=== PATIENT | male | born 1990 ===

== ENCOUNTER 2017-05-23 10:13 | Emergency (ER) | payer MEDICAID ==
[~2017-05-23 10:13] MED LIST: Sodium Chloride 0.9% 1,000 ML IV ONE; Sodium Chloride 0.9% 10 ML Syringe FLUSH PRN
--- NOTE | 2017-05-23 10:54 | CR ---
Clinical history: 26-year-old male with chest pain. Interpretation: Upright AP portable chest unremarkable. Normal cardiac silhouette and pulmonary vascularity without signs of alveolar edema or dependent effu nicko. No lung mass or hilar lymphadenopathy. No focal lobar pneumonia, atelectasis or collapse. Al thorax unremarkable. Left-sided aortic arch. No pneumothorax. CONCLUSION: No acute cardiopulmonary abnormality.
--- NOTE | 2017-05-23 10:55 | EDM.PDOC ---
ED HPI GENERAL MEDICAL PROBLEM - General Chief Complaint: Drug or Alcohol Abuse Stated Complaint: IN BY AMBULANCE Time Seen by Provider: 05/23/17 10:30 Source of Information: Reports: Patient, EMS, EMS Notes Reviewed, RN, RN Notes Reviewed History Limitations: Reports: No Limitations - History of Present Illness INITIAL COMMENTS - FREE TEXT/NARRATIVE: Patient presents to the ER per [facility] with c/o chest pain and anxiety. He states at 0400 today he snorted Percocet 10/325 that was possibly laced with meth. He states he has never taken these drugs before, as the only recreational drug he has used is marijuana. He states he got up to get ready to go to work at the [employer] and states he became very shaky, anxious, and had chest pain. He states the pain was a sharp stabbing pain which he rated 10/10. When pointing to where the pain was he points to his epigastrum area. He states the pain is completely gone at this time. Onset: Today, Sudden Onset Date: 05/23/17 Onset Time: 08:00 Location: Reports: Chest, Abdomen Quality: Reports: Sharp, Stabbing Severity: Severe Improves with: Reports: None Worsens with: Reports: None Associated Symptoms: Reports: Other (tingling in the hands bilaterally) Bilateral Hand Pain Score (Numeric/FACES): 8 - Related Data Allergies Allergy/AdvReac Type Severity Reaction Status Date / Time No Known Allergies Allergy Verified 05/23/17 10:19 Home Meds: Home Meds . [No Known Home Meds] 04/10/16 [History] Past Medical History - Past Health History Medical/Surgical History: Denies Medical/Surgical History Social & Family History - Tobacco Use Smoking Status *Q: Current Every Day Smoker Years of Tobacco use: 10 Packs/Tins Daily: 1 - Caffeine Use Caffeine Use: Reports: Coffee, Energy Drinks, Soda - Alcohol Use Days Per Week of Alcohol Use: 2 Number of Drinks Per Day: 12 Total Drinks Per Week: 24 - Recreational Drug Use Recreational Drug Use: Yes Drug Use in Last 12 Months: Yes Recreational Drug Type: Reports: Marijuana/Hashish Recreational Drug Use Frequency: Daily ED ROS GENERAL - Review of Systems Review Of Systems: ROS reveals no pertinent complaints other than HPI. ED EXAM, GENERAL - Physical Exam Exam: See Below Exam Limited By: No Limitations General Appearance: Alert, WD/WN, Anxious, Moderate Distress Eye Exam: Bilateral Eye: Normal Inspection, PERRL (4) Ears: Normal External Exam, Hearing Grossly Normal Nose: Normal Inspection, Normal Mucosa, No Blood Throat/Mouth: Normal Inspection, Normal Lips, Normal Teeth, Normal Gums, Normal Oropharynx, Normal Voice, No Airway Compromise Head: Atraumatic, Normocephalic Neck: Normal Inspection, Supple, Non-Tender, Full Range of Motion Respiratory/Chest: No Respiratory Distress, Lungs Clear, Normal Breath Sounds, No Accessory Muscle Use, Chest Non-Tender Cardiovascular: Normal Peripheral Pulses, Regular Rate, Rhythm, No Edema, No Gallop, No JVD, No Murmur, No Rub Peripheral Pulses: 2+: Radial (L), Radial (R) GI/Abdominal: Normal Bowel Sounds, Soft, Non-Tender, No Organomegaly, No Distention, No Abnormal Bruit, No Mass (Male) Exam: Deferred Rectal (Males) Exam: Deferred Back Exam: Normal Inspection, Full Range of Motion Extremities: Normal Inspection, Normal Range of Motion, Non-Tender, No Pedal Edema, Normal Capillary Refill Neurological: Alert, Oriented, Normal Cognition, Normal Gait, No Motor/Sensory Deficits Psychiatric: Normal Affect, Anxious Skin Exam: Warm, Dry, Intact, Normal Color, No Rash Lymphatic: No Adenopathy EKG INTERPRETATION EKG Date: 05/23/17 Time: 10:38 Rhythm: Other (bradycardia) Rate (Beats/Min): 53 [place]: Normal P-Wave: Present QRS: Normal ST-T: Normal QT: Normal Comparison: NA - No Prior EKG Course - Vital Signs Last Recorded V/S: Last Vital Signs Temp 97.5 F 05/23/17 10:40 Pulse 55 L 05/23/17 10:40 Resp 19 05/23/17 10:40 BP 150/99 H 05/23/17 10:40 Pulse Ox 100 05/23/17 10:40 - Orders/Labs/Meds Orders: Active Orders 24 hr Category Date Time Status EKG Documentation Completion [RC] STAT Care 05/23/17 10:03 Active Peripheral IV Care [RC] . DIRECTED Care 05/23/17 10:07 Active D5 1/2 NS w/ 10 mEq/L KCl 1,000 ml Med 05/23/17 11:15 Active IV ASDIRECTED Sodium Chloride 0.9% [Saline Flush] Med 05/23/17 10:07 Active 10 ml FLUSH ASDIRECTED PRN Peripheral IV Insertion Adult [OM.PC] Stat Oth 05/23/17 10:07 Ordered Medication Orders Potassium Chloride/Dextrose/Sod Cl (D5 1/2 Ns W/ 10 Meq/L Kcl) 1,000 mls @ 999 mls/hr IV ASDIRECTED WISAM Last Admin: 05/23/17 11:27 Dose: 999 mls/hr Sodium Chloride (Saline Flush) 10 ml FLUSH ASDIRECTED PRN PRN Reason: Keep Vein Open Labs: Laboratory Tests 05/23/17 05/23/17 05/23/17 Range/Units 10:22 10:22 10:28 WBC 10.4 H (5.0-10.0) 10^3/uL RBC 5.22 (4.6-6.2) 10^6/uL Hgb 16.8 (14.0-18.0) g/dL Hct 46.6 (40.0-54.0) % MCV 89.3 (80-100) fL MCH 32.2 (27.0-34.0) pg MCHC 36.1 H (33.0-35.0) g/dL Plt Count 288 (150-450) 10^3/uL Neut % (Auto) 71.2 (42.2-75.2) % Lymph % (Auto) 17.9 L (20.5-50.1) % Boyd % (Auto) 10.6 H (2-8) % Eos % (Auto) 0.2 L (1.0-3.0) % Baso % (Auto) 0.1 (0.0-1.0) % Sodium (135-145) mmol/L Potassium (3.6-5.0) mmol/L Chloride (101-111) mmol/L Carbon Dioxide (21.0-31.0) mmol/L Anion Gap BUN (7-18) mg/dL Creatinine (0.6-1.3) mg/dL Est Cr Clr Drug Dosing mL/min Estimated GFR (MDRD) BUN/Creatinine Ratio Glucose (74-105) mg/dL Calcium (8.4-10.2) mg/dl Magnesium (1.8-2.5) mg/dL Total Bilirubin (0.2-1.0) mg/dL AST (10-42) IU/L ALT (10-60) IU/L Alkaline Phosphatase (42-121) IU/L Creatine Kinase (26-174) IU/L Creatine Kinase Index (0-2.4) % CK-MB (CK-2) (0.4-4.7) ng/mL Troponin I (0.00-0.02) ng/ml Total Protein (6.7-8.2) g/dl Albumin (3.2-5.5) g/dl Globulin Albumin/Globulin Ratio Urine Color Yellow (YELLOW) Urine Appearance Clear (CLEAR) Urine pH 6.5 (5.0-9.0) Ur Specific [place] <= 1.005 (1.005-1.030) Urine Protein Negative (NEGATIVE) Urine Glucose (UA) Negative (NEGATIVE) Urine Ketones Negative (NEGATIVE) Urine Occult Blood Negative (NEGATIVE) Urine Nitrite Negative (NEGATIVE) Urine Bilirubin Negative (NEGATIVE) Urine Urobilinogen 0.2 (0.2-1.0) mg/dL Ur Leukocyte Esterase Negative (NEGATIVE) Urine RBC 0-5 /HPF Urine WBC 0-5 (0-5/HPF) /HPF Ur Epithelial Cells Rare /HPF Urine Bacteria Rare (0-FEW/HPF) /HPF Salicylates Urine Opiates Screen Negative (NEGATIVE) Ur Oxycodone Screen Positive H (NEGATIVE) Urine Methadone Screen Negative (NEGATIVE) Acetaminophen Ur Barbiturates Screen Negative (NEGATIVE) U Tricyclic Antidepress Negative (NEGATIVE) Ur Phencyclidine Scrn Negative (NEGATIVE) Ur Amphetamine Screen Negative (NEGATIVE) U Methamphetamines Scrn Positive H (NEGATIVE) Urine MDMA Screen Negative (NEGATIVE) U Benzodiazepines Scrn Negative (NEGATIVE) Urine Cocaine Screen Negative (NEGATIVE) U Marijuana (THC) Screen Negative (NEGATIVE) Ethyl Alcohol mg/dL 05/23/17 05/23/17 Range/Units 10:28 10:28 WBC (5.0-10.0) 10^3/uL RBC (4.6-6.2) 10^6/uL Hgb (14.0-18.0) g/dL Hct (40.0-54.0) % MCV (80-100) fL MCH (27.0-34.0) pg MCHC (33.0-35.0) g/dL Plt Count (150-450) 10^3/uL Neut % (Auto) (42.2-75.2) % Lymph % (Auto) (20.5-50.1) % Boyd % (Auto) (2-8) % Eos % (Auto) (1.0-3.0) % Baso % (Auto) (0.0-1.0) % Sodium 137 (135-145) mmol/L Potassium 2.7 L (3.6-5.0) mmol/L Chloride 97 L (101-111) mmol/L Carbon Dioxide 20.0 L (21.0-31.0) mmol/L Anion Gap 22.7 BUN 9 (7-18) mg/dL Creatinine 1.0 (0.6-1.3) mg/dL Est Cr Clr Drug Dosing 130.15 mL/min Estimated GFR (MDRD) > 60 BUN/Creatinine Ratio 9.00 Glucose 100 (74-105) mg/dL Calcium 10.2 (8.4-10.2) mg/dl Magnesium 1.6 L (1.8-2.5) mg/dL Total Bilirubin 2.2 H (0.2-1.0) mg/dL AST 40 (10-42) IU/L ALT 31 (10-60) IU/L Alkaline Phosphatase 72 (42-121) IU/L Creatine Kinase 378 H (26-174) IU/L Creatine Kinase Index 1.7 (0-2.4) % CK-MB (CK-2) 6.30 H (0.4-4.7) ng/mL Troponin I < 0.02 (0.00-0.02) ng/ml Total Protein 8.5 H (6.7-8.2) g/dl Albumin 5.0 (3.2-5.5) g/dl Globulin 3.5 Albumin/Globulin Ratio 1.43 Urine Color (YELLOW) Urine Appearance (CLEAR) Urine pH (5.0-9.0) Ur Specific [place] (1.005-1.030) Urine Protein (NEGATIVE) Urine Glucose (UA) (NEGATIVE) Urine Ketones (NEGATIVE) Urine Occult Blood (NEGATIVE) Urine Nitrite (NEGATIVE) Urine Bilirubin (NEGATIVE) Urine Urobilinogen (0.2-1.0) mg/dL Ur Leukocyte Esterase (NEGATIVE) Urine RBC /HPF Urine WBC (0-5/HPF) /HPF Ur Epithelial Cells /HPF Urine Bacteria (0-FEW/HPF) /HPF Salicylates < 4 Urine Opiates Screen (NEGATIVE) Ur Oxycodone Screen (NEGATIVE) Urine Methadone Screen (NEGATIVE) Acetaminophen < 10 Ur Barbiturates Screen (NEGATIVE) U Tricyclic Antidepress (NEGATIVE) Ur Phencyclidine Scrn (NEGATIVE) Ur Amphetamine Screen (NEGATIVE) U Methamphetamines Scrn (NEGATIVE) Urine MDMA Screen (NEGATIVE) U Benzodiazepines Scrn (NEGATIVE) Urine Cocaine Screen (NEGATIVE) U Marijuana (THC) Screen (NEGATIVE) Ethyl Alcohol 5 mg/dL Meds: Medications Generic Name Dose Route Start Last Admin Trade Name Freq PRN Reason Stop Dose Admin Potassium Chloride/Dextrose/Sod Cl 1,000 mls @ 999 mls/hr 05/23/17 11:15 09/07 11:27 D5 1/2 Ns W/ 10 Meq/L Kcl IV 999 mls/hr ASDIRECTED WISAM Administration Sodium Chloride 10 ml 05/23/17 10:07 Saline Flush FLUSH ASDIRECTED PRN Keep Vein Open Discontinued Medications Generic Name Dose Route Start Last Admin Trade Name Freq PRN Reason Stop Dose Admin Sodium Chloride 1,000 mls @ 999 mls/hr 05/23/17 10:05 05/23/17 10:32 Normal Saline IV 05/23/17 11:05 999 mls/hr .BOLUS ONE Administration Potassium Chloride 20 meq 05/23/17 11:08 05/23/17 11:17 Klor-Con 10 PO 05/23/17 11:09 20 meq ONETIME ONE Administration - Radiology Interpretation Free Text/Narrative:: chest xray: no acute findings See rad report Departure - Departure Time of Disposition: 12:33 Disposition: Home, Self-Care 01 Condition: Good Clinical Impression: Drug abuse, Anxiety, Hypokalemia Instructions: Chemical Dependency, Drug Overdose, Nonspecific Chest Pain, Easy- to-Read, Hypokalemia Forms: ED Department Discharge Additional Instructions: Refrain from drug and alcohol use. Follow up with your primary care facility. Drink plenty of water. RX: Potassium Chloride 20mEq orally, twice daily for 1 week. FOllow up with your primary care facility. - My Orders Last 24 Hours: My Active Orders 05/23/17 10:03 EKG Documentation Completion [RC] STAT 05/23/17 10:07 Peripheral IV Care [RC] . DIRECTED Sodium Chloride 0.9% [Saline Flush] 10 ml FLUSH ASDIRECTED PRN Peripheral IV Insertion Adult [OM.PC] Stat 05/23/17 11:15 D5 1/2 NS w/ 10 mEq/L KCl 1,000 ml IV ASDIRECTED - Assessment/Plan Last 24 Hours: My Active Orders 05/23/17 10:03 EKG Documentation Completion [RC] STAT 05/23/17 10:07 Peripheral IV Care [RC] . DIRECTED Sodium Chloride 0.9% [Saline Flush] 10 ml FLUSH ASDIRECTED PRN Peripheral IV Insertion Adult [OM.PC] Stat 05/23/17 11:15 D5 1/2 NS w/ 10 mEq/L KCl 1,000 ml IV ASDIRECTED
[2017-05-23 10:56] LABS: CHLORIDE,CL 97 mmol/L (101-111); SODIUM,NA 137 mmol/L (135-145)
[2017-05-23 10:57] LABS: ACETAMINOPHEN < 10
[2017-05-23] MEDS ORDERED: Potassium Chloride 10 MEQ Tab.ER PO ONE (11:08)
[2017-05-23] MEDS ORDERED: D5 1/2 NS w/ 10 mEq/L KCl 1,000 ML IV SCH (11:15)
--- NOTE | 2017-05-24 11:47 | EKG ---
05/23/2017 - BENITO SMITH - Twelve-lead EKG shows normal sinus rhythm with sinus bradycardia with heart rate of 53. [place] interval of 192. QTc of 421. No significant ST elevation or ST depression noted on this 12-lead EKG except for nonspecific ST-T wave changes noted on lead V2, V3. [facility] [place] /[id number]
--- NOTE | 2017-05-26 12:13 | EKG ---
05/23/2017 - BENITO SMITH - Twelve-lead EKG shows normal sinus rhythm with sinus bradycardia. Heart rate of 53, HI interval of 192, no significant ST elevation or ST depression noted on this 12-lead EKG. [facility] /[id number]
== END 2017-05-23 12:40 | disposition home or self-care (01) ==
LOC: DL.ED 10:13
DX: F15.10 Other stimulant abuse, uncomplicated (principal); F11.10 Opioid abuse, uncomplicated; E87.6 Hypokalemia; F41.9 Anxiety disorder, unspecified; F17.210 Nicotine dependence, cigarettes, uncomplicated
CPT/HCPCS: 36415; 71010; 80053; 80305; 81001; 82550; 82553; 83735; 84484; 85025; 93005; 96361; 96365; 99285; A9270; G0480; J3480; J7030

== ENCOUNTER 2020-11-20 09:24 | Inpatient (IN) | payer MEDICAID, OTHER ==
[2020-11-20] MEDS ORDERED: Sodium Chloride 0.9% 10 ML Syringe FLUSH PRN (09:37)
[2020-11-20] MEDS ORDERED: Albuterol/Ipratropium 3.0-0.5 MG/3 ML Neb Soln NEB ONE (09:58)
[2020-11-20] MEDS ORDERED: cefTRIAXone 2 GM in Sodium Chloride 0.9% 100 ML IV ONE (09:58)
[2020-11-20] MEDS ORDERED: Dexamethasone 4 MG/ML SDV IVPUSH ONE (09:59)
[2020-11-20] MEDS ORDERED: Azithromycin 500 MG in Sodium Chloride 0.9% 250 ML IV ONE (09:59)
[2020-11-20 10:18] LABS: CHLORIDE,CL 102 mmol/L (98-107); SODIUM,NA 137 mmol/L (136-145)
--- NOTE | 2020-11-20 10:18 | CR ---
PROCEDURE INFORMATION: Exam: XR Chest Exam date and time: 11/20/2020 9:39 AM Age: 30 years old Clinical indication: Cough; Additional info: Cough, recent dx of pneumonia TECHNIQUE: Imaging protocol: XR of the chest. Views: 2 views. COMPARISON: CR Chest 1V Frontal 05/23/2017 10:34 AM FINDINGS: Lungs: There is mild patchy opacity in the perihilar right lower lobe, suggesting pneumonia. The lungs are otherwise clear. Pleural spaces: Unremarkable. No pleural effusion. No pneumothorax. Heart/Mediastinum: The cardiomediastinal silhouette is fairly stable in appearance, allowing for differences in technique. Bones/joints: Unremarkable. IMPRESSION: Patchy perihilar right lower lobe opacity suggesting pneumonia.
[2020-11-20 10:55] LABS: CORONAVIRUS COVID-19 NAA NEGATIVE (NEGATIVE)
[2020-11-20] MEDS ORDERED: Iopamidol 755 Mg/ML 100 ML Bottle IVPUSH ONE (11:01)
--- NOTE | 2020-11-20 12:00 | CT ---
PROCEDURE INFORMATION: Exam: CT Chest With Contrast; Diagnostic Exam date and time: 11/20/2020 11:27 AM Age: 30 years old Clinical indication: Cough; Chest pain; Type not specified; Additional info: Cough, chest pain, d-dimer 1750 TECHNIQUE: Imaging protocol: Diagnostic computed tomography of the chest with contrast. Radiation optimization: All CT scans at this facility use at least one of these dose optimization techniques: automated exposure control; mA and/or kV adjustment per patient size (includes targeted exams where dose is matched to clinical indication); or iterative reconstruction. Contrast material: ISOVUE 370; Contrast volume: 75 ml; Contrast route: INTRAVENOUS (IV); COMPARISON: CR Chest 2V 11/20/2020 9:39 AM FINDINGS: Lungs: There is dense airspace consolidation involving much of the right lower lobe posteriorly. Minor dependent atelectasis is present elsewhere bilaterally. The lungs are otherwise clear. There is some bronchial opacification in the region of consolidation. Pleural spaces: A very small right pleural effusion is present. No left effusion. No pneumothorax. Heart: Unremarkable. No cardiomegaly. No pericardial effusion. Pulmonary arteries: No pulmonary embolus is identified. Aorta: The thoracic aorta is nonaneurysmal. Lymph nodes: Unremarkable. No enlarged lymph nodes. Bones/joints: Unremarkable. No acute fracture. Soft tissues: Unremarkable. IMPRESSION: 1. No pulmonary embolus identified. 2. Dense airspace consolidation involving much of the right lower lobe posteriorly, suggesting pneumonia. 3. Very small right pleural effusion.
--- NOTE | 2020-11-20 12:27 | EDM.PDOC ---
Scribed by Lelia Sanz 11/20/20 0944 for So Rider MD ED HPI GENERAL MEDICAL PROBLEM - General Chief Complaint: Respiratory Problem Stated Complaint: PNEUMONIA Time Seen by Provider: 11/20/20 09:35 Source of Information: Reports: Patient, EMS, EMS Notes Reviewed, RN, RN Notes Reviewed History Limitations: Reports: No Limitations - History of Present Illness INITIAL COMMENTS - FREE TEXT/NARRATIVE: Patient arrives by [facility] with c/o cough and pain in the right side of his chest/lung. Pt states he was seen in clinic last week for a cough, and diagnosed with pneumonia. He felt better, so he stopped the inhaler and antibiotics after a couple of days. He went out "partying" and smoked methamphetamine, now feels sick and has a painful cough again. Pt admits to generalized weakness and fatigue. Onset: Gradual Duration: Getting Worse, Recurring Location: Reports: Chest Quality: Reports: Ache, Burning, Sharp Severity: Moderate Improves with: Reports: None Worsens with: Reports: Breathing Associated Symptoms: Reports: No Other Symptoms Right Chest Pain Score (Numeric/FACES): 5 - Related Data Allergies Allergy/AdvReac Type Severity Reaction Status Date / Time Penicillins Allergy Cannot Verified 11/20/20 09:40 Remember Home Meds: Home Meds . [No Known Home Meds] 04/10/16 [History] Past Medical History - Past Health History Medical/Surgical History: Denies Medical/Surgical History Psychiatric History: Reports: Addiction Social & Family History - Family History Family Medical History: No Pertinent Family History - Caffeine Use Caffeine Use: Reports: Coffee, Energy Drinks, Soda - Alcohol Use Alcohol Use History: Yes Alcohol Use Frequency: Binges - Recreational Drug Use Recreational Drug Use: Yes Drug Use in Last 12 Months: Yes Recreational Drug Type: Reports: Marijuana/Hashish, Methamphetamine - Living Situation & Occupation Living situation: Reports: with Family ED ROS GENERAL - Review of Systems Review Of Systems: Comprehensive ROS is negative, except as noted in HPI. ED EXAM, GENERAL - Physical Exam Exam: See Below Exam Limited By: No Limitations General Appearance: Alert, WD/WN, No Apparent Distress Eye Exam: Bilateral Eye: Normal Inspection Ears: Normal External Exam, Normal Canal, Hearing Grossly Normal, Normal TMs Nose: Normal Inspection, Normal Mucosa, No Blood Throat/Mouth: Normal Inspection, Normal Lips, Normal Oropharynx, Normal Voice, No Airway Compromise Head: Atraumatic, Normocephalic Neck: Normal Inspection, Supple, Non-Tender, Full Range of Motion Respiratory/Chest: No Respiratory Distress, No Accessory Muscle Use, Decreased Breath Sounds, Crackles, Rhonchi (Right), Wheezing, Other (Rt chest wall tenderness). No: Rales Cardiovascular: Regular Rate, Rhythm, No Edema GI/Abdominal: Normal Bowel Sounds, Soft, Non-Tender, No Organomegaly, No Distention, No Abnormal Bruit, No Mass Back Exam: Normal Inspection. No: CVA Tenderness (L), CVA Tenderness (R) Extremities: Normal Inspection, Normal Range of Motion, Non-Tender, Normal C apillary Refill, No Pedal Edema Neurological: Alert, Oriented, CN II-XII Intact, Normal Cognition, Normal Gait, No Motor/Sensory Deficits Psychiatric: Normal Affect, Normal Mood Skin Exam: Warm, Dry, Intact, Normal Color, No Rash Course - Vital Signs Last Recorded V/S: Last Vital Signs Temp 97.2 F 11/20/20 09:37 Pulse 84 11/20/20 10:07 Resp 20 11/20/20 09:37 BP 134/69 11/20/20 09:37 Pulse Ox 94 L 11/20/20 09:37 - Orders/Labs/Meds Orders: Active Orders 24 hr Category Date Time Status Peripheral IV Care [RC] . DIRECTED Care 11/20/20 09:37 Active RT Aerosol Therapy [RC] ASDIRECTED Care 11/20/20 09:58 Active CULTURE BLOOD [BC] Stat Lab 11/20/20 09:50 Received CULTURE STREP A CONFIRMATION [RM] Stat Lab 11/20/20 10:05 Results STREP SCRN A RAPID W CULT CONF [RM] Stat Lab 11/20/20 10:05 Results UA RFX SOULEYMANE AND CULT IF INDIC [URIN] Stat Lab 11/20/20 09:36 Ordered Sodium Chloride 0.9% [Saline Flush] Med 11/20/20 09:37 Active 10 ml FLUSH ASDIRECTED PRN Peripheral IV Insertion Adult [OM.PC] Stat Oth 11/20/20 09:36 Ordered Medication Orders Sodium Chloride (Sodium Chloride 0.9% 10 Ml Syringe) 10 ml FLUSH ASDIRECTED PRN PRN Reason: Keep Vein Open Last Admin: 11/20/20 10:18 Dose: 10 ml Documented by: ISHMAEL Labs: Laboratory Tests 11/20/20 11/20/20 11/20/20 Range/Units 09:50 09:50 09:50 WBC 8.9 (5.0-10.0) 10^3/uL RBC 4.57 L (4.6-6.2) 10^6/uL Hgb 14.5 D (14.0-18.0) g/dL Hct 42.6 (40.0-54.0) % MCV 93.2 D (80-100) fL MCH 31.7 (27.0-34.0) pg MCHC 34.0 (33.0-35.0) g/dL Plt Count 333 (150-450) 10^3/uL Neut % (Auto) 66.1 (42.2-75.2) % Lymph % (Auto) 16.6 L (20.5-50.1) % Milam % (Auto) 15.0 H (2-8) % Eos % (Auto) 2.0 (1.0-3.0) % Baso % (Auto) 0.3 (0.0-1.0) % Add Manual Diff Yes Neutrophils % (Manual) 58 (42-75) % Lymphocytes % (Manual) 20 (20-50) % Monocytes % (Manual) 19 H (2-8) % Eosinophils % (Manual) 2 (1-3) % Basophils % (Manual) 1 D-Dimer, Quantitative 1750 H (0-400) ng/mL Sodium 137 (136-145) mmol/L Potassium 4.0 (3.5-5.1) mmol/L Chloride 102 (98-107) mmol/L Carbon Dioxide 25 (21-32) mmol/L Anion Gap 14.0 H (7-13) mEq/L BUN 16 (7-18) mg/dL Creatinine 0.98 (0.70-1.30) mg/dL Est Cr Clr Drug Dosing 128.15 mL/min Estimated GFR (MDRD) > 60 BUN/Creatinine Ratio 16.3 (No establ ref range) Glucose 102 H (70-99) mg/dL Lactic Acid (0.4-2.0) mmol/L Calcium 8.4 L (8.5-10.1) mg/dL Total Bilirubin 1.3 H (0.2-1.0) mg/dL AST 15 (15-37) U/L ALT 62 (16-63) U/L Alkaline Phosphatase 96 (46-116) U/L C-Reactive Protein 10.4 H (0.0-0.9) mg/dL Total Protein 7.3 (6.4-8.2) g/dL Albumin 2.9 L (3.4-5.0) g/dL Globulin 4.4 Albumin/Globulin Ratio 0.66 Ethyl Alcohol < 3 (0) mg/dL Influenza Type A RNA (NEGATIVE) Influenza Type B RNA (NEGATIVE) SARS-CoV-2 RNA (HERNANDEZ) (NEGATIVE) 11/20/20 11/20/20 Range/Units 09:50 10:05 WBC (5.0-10.0) 10^3/uL RBC (4.6-6.2) 10^6/uL Hgb (14.0-18.0) g/dL Hct (40.0-54.0) % MCV (80-100) fL MCH (27.0-34.0) pg MCHC (33.0-35.0) g/dL Plt Count (150-450) 10^3/uL Neut % (Auto) (42.2-75.2) % Lymph % (Auto) (20.5-50.1) % Milam % (Auto) (2-8) % Eos % (Auto) (1.0-3.0) % Baso % (Auto) (0.0-1.0) % Add Manual Diff Neutrophils % (Manual) (42-75) % Lymphocytes % (Manual) (20-50) % Monocytes % (Manual) (2-8) % Eosinophils % (Manual) (1-3) % Basophils % (Manual) D-Dimer, Quantitative (0-400) ng/mL Sodium (136-145) mmol/L Potassium (3.5-5.1) mmol/L Chloride (98-107) mmol/L Carbon Dioxide (21-32) mmol/L Anion Gap (7-13) mEq/L BUN (7-18) mg/dL Creatinine (0.70-1.30) mg/dL Est Cr Clr Drug Dosing mL/min Estimated GFR (MDRD) BUN/Creatinine Ratio (No establ ref range) Glucose (70-99) mg/dL Lactic Acid 0.6 (0.4-2.0) mmol/L Calcium (8.5-10.1) mg/dL Total Bilirubin (0.2-1.0) mg/dL AST (15-37) U/L ALT (16-63) U/L Alkaline Phosphatase (46-116) U/L C-Reactive Protein (0.0-0.9) mg/dL Total Protein (6.4-8.2) g/dL Albumin (3.4-5.0) g/dL Globulin Albumin/Globulin Ratio Ethyl Alcohol (0) mg/dL Influenza Type A RNA Negative (NEGATIVE) Influenza Type B RNA Negative (NEGATIVE) SARS-CoV-2 RNA (HERNANDEZ) Negative (NEGATIVE) RApid strep: Negative. Meds: Medications Generic Name Dose Route Start Last Admin Trade Name Freq PRN Reason Stop Dose Admin Sodium Chloride 10 ml 11/20/20 09:37 11/20/20 10:18 Sodium Chloride 0.9% 10 Ml Syringe FLUSH 10 ml ASDIRECTED PRN Administration Keep Vein Open Discontinued Medications Generic Name Dose Route Start Last Admin Trade Name Freq PRN Reason Stop Dose Admin Albuterol/Ipratropium 3 ml 11/20/20 09:58 11/20/20 10:07 Albuterol/Ipratropium 3.0-0.5 Mg/3 Ml Neb Soln NEB 11/20/20 09:59 3 ml ONETIME ONE Administration Dexamethasone 8 mg 11/20/20 09:59 11/20/20 10:17 Dexamethasone 4 Mg/Ml Sdv IVPUSH 11/20/20 10:00 8 mg ONETIME ONE Administration Ceftriaxone Sodium 2 gm/ 100 mls @ 200 mls/hr 11/20/20 09:58 11/20/20 10:20 Sodium Chloride IV 11/20/20 10:27 200 mls/hr ONETIME ONE Administration Azithromycin 500 mg/ Sodium 250 mls @ 250 mls/hr 11/20/20 09:59 11/20/20 10:23 Chloride IV 11/20/20 10:58 250 mls/hr ONETIME ONE Administration Iopamidol 100 ml 11/20/20 11:01 11/20/20 11:46 Iopamidol 755 Mg/Ml 100 Ml Bottle IVPUSH 11/20/20 11:02 75 ml ONETIME ONE Administration - Radiology Interpretation Free Text/Narrative:: Final Radiology Report Call: [phone] assistance Online chat: [email or web address] Name: SHUKRI SMITH Age: 30Years M Date: 11/20/2020 SSN: -- : 1990 Study: CR CHEST 2V Requesting Physician: SO RIDER Images: 2 Addl Studies: Provided Clinical History: cough, recent Dx of pneumonia Contrast: Contrast Medium: Contrast Amount: Contrast Method: CONFIDENTIALITY STATEMENT This report is intended only for use by the referring physician, and only in accordance with law. If you received this in error, call [phone]. Page 1 of 1 PROCEDURE INFORMATION: Exam: XR Chest Exam date and time: 11/20/2020 9:39 AM Age: 30 years old Clinical indication: Cough; Additional info: Cough, recent dx of pneumonia TECHNIQUE: Imaging protocol: XR of the chest. Views: 2 views. COMPARISON: CR Chest 1V Frontal 05/23/2017 10:34 AM FINDINGS: Lungs: There is mild patchy opacity in the perihilar right lower lobe, suggesting pneumonia. The lungs are otherwise clear. Pleural spaces: Unremarkable. No pleural effusion. No pneumothorax. Heart/Mediastinum: The cardiomediastinal silhouette is fairly stable in appearance, allowing for differences in technique. Bones/joints: Unremarkable. IMPRESSION: Patchy perihilar right lower lobe opacity suggesting pneumonia. Thank you for allowing us to participate in the care of your patient. Dictated and Authenticated by: Shukri Cade MD 11/20/2020 10:18 AM Central Time ([place] & [place]) [facility] Final Radiology Report Call: [phone] assistance Online chat: [email or web address] Name: SHUKRI SMITH Age: 30Years M Date: 11/20/2020 SSN: -- : 1990 Study: CT CHEST W CONT Requesting Physician: SO RIDER Images: 431 Addl Studies: Provided Clinical History: cough, chest pain, D-dimer 1750 Contrast: With Contrast Medium: Isovue 370 Contrast Amount: 75 mL Contrast Method: Intravenous (IV) Page 1 of 2 PROCEDURE INFORMATION: Exam: CT Chest With Contrast; Diagnostic Exam date and time: 11/20/2020 11:27 AM Age: 30 years old Clinical indication: Cough; Chest pain; Type not specified; Additional info: Cough, chest pain, ddimer 1750 TECHNIQUE: Imaging protocol: Diagnostic computed tomography of the chest with contrast. Radiation optimization: All CT scans at this facility use at least one of these dose optimization techniques: automated exposure control; mA and/or kV adjustment per patient size (includes targeted exams where dose is matched to clinical indication); or iterative reconstructio n. Contrast material: ISOVUE 370; Contrast volume: 75 ml; Contrast route: INTRAVENOUS (IV); COMPARISON: CR Chest 2V 11/20/2020 9:39 AM FINDINGS: Lungs: There is dense airspace consolidation involving much of the right lower lobe posteriorly. Minor dependent atelectasis is present elsewhere bilaterally. The lungs are otherwise clear. There is some bronchial opacification in the region of consolidation. Pleural spaces: A very small right pleural effusion is present. No left effusion. No pneumothorax. Heart: Unremarkable. No cardiomegaly. No pericardial effusion. Pulmonary arteries: No pulmonary embolus is identified. Aorta: The thoracic aorta is nonaneurysmal. Lymph nodes: Unremarkable. No enlarged lymph nodes. Bones/joints: Unremarkable. No acute fracture. Soft tissues: Unremarkable. SHUKRI SMITH | Final Radiology Report CONFIDENTIALITY STATEMENT This report is intended only for use by the referring physician, and only in accordance with law. If you received this in error, call [phone]. Page 2 of 2 IMPRESSION: 1. No pulmonary embolus identified. 2. Dense airspace consolidation involving much of the right lower lobe posteriorly, suggesting pneumonia. 3. Very small right pleural effusion. Thank you for allowing us to participate in the care of your patient. Dictated and Authenticated by: Shukri Cade MD 11/20/2020 12:00 PM Central Time ([place] & [place]) Departure - Departure Time of Disposition: 12:23 (admitted to Dr. Keen) Disposition: Admitted As Inpatient 66 Condition: Fair Clinical Impression: Pneumonia Qualifiers: Pneumonia type: due to unspecified organism Laterality: right Lung location: lower lobe of lung Qualified Code(s): J18.9 - Pneumonia, unspecified organism - Discharge Information *PRESCRIPTION DRUG MONITORING PROGRAM REVIEWED*: Not Applicable *COPY OF PRESCRIPTION DRUG MONITORING REPORT IN PATIENT KUN: Not Applicable Forms: ED Department Discharge Sepsis Event Note (ED) - Focused Exam Vital Signs: Vital Signs Temp Pulse Resp BP Pulse Ox 11/20/20 10:07 84 11/20/20 09:37 97.2 F 93 20 134/69 94 L - My Orders Last 24 Hours: My Active Orders 11/20/20 09:36 UA RFX SOULEYMANE AND CULT IF INDIC [URIN] Stat Peripheral IV Insertion Adult [OM.PC] Stat 11/20/20 09:37 Peripheral IV Care [RC] . DIRECTED Sodium Chloride 0.9% [Saline Flush] 10 ml FLUSH ASDIRECTED PRN 11/20/20 09:50 CULTURE BLOOD [BC] Stat 11/20/20 09:58 RT Aerosol Therapy [RC] ASDIRECTED 11/20/20 10:05 CULTURE STREP A CONFIRMATION [RM] Stat STREP SCRN A RAPID W CULT CONF [RM] Stat - Assessment/Plan Last 24 Hours: My Active Orders 11/20/20 09:36 UA RFX SOULEYMANE AND CULT IF INDIC [URIN] Stat Peripheral IV Insertion Adult [OM.PC] Stat 11/20/20 09:37 Peripheral IV Care [RC] . DIRECTED Sodium Chloride 0.9% [Saline Flush] 10 ml FLUSH ASDIRECTED PRN 11/20/20 09:50 CULTURE BLOOD [BC] Stat 11/20/20 09:58 RT Aerosol Therapy [RC] ASDIRECTED 11/20/20 10:05 CULTURE STREP A CONFIRMATION [RM] Stat STREP SCRN A RAPID W CULT CONF [RM] Stat I have read and agree with the documentation that has been completed regarding this visit. By signing this record, I attest that the documentation was completed in my physical presence and is an accurate record of the encounter.
[2020-11-20] MEDS ORDERED: Acetaminophen 325 MG Tab PO PRN (12:39)
[2020-11-20] MEDS ORDERED: Ondansetron 4 MG/2 ML SDV IVPUSH PRN (12:39)
[2020-11-20] MEDS ORDERED: traMADol 50 MG Tab PO PRN (12:48)
--- NOTE | 2020-11-20 12:54 | PCM.HP ---
H&P History of Present Illness - General Date of Service: 11/20/20 Admit Problem/Dx: Admission Diagnosis/Problem Admission Diagnosis/Problem Pneumonia Source of Information: Patient History Limitations: Reports: No Limitations - History of Present Illness Initial Comments - Free Text/Narative: Chief complaint: Pleurisy Patient is a 30-year-old male with a past medical history really only notable for prior drug use who presents to the [facility] emergency department due to chief complaint of pleurisy on the right. Patient states that he was in his usual state of health up until this past when he woke up with shaking chills and noted that he had a fever. He was cold and clammy all day. He felt a little malaise. He did not feel like eating or drinking. As he knew something was not right he presented to a local clinic to be seen. He was evaluated and diagnosed with an acute right lower lobe community-acquired pneumonia for which she was prescribed an antibiotic and discharged. The patient had normal labs according to his report and he was never requiring supplemental oxygen. He does not remember which antibiotic they gave him, he states that he only took a couple doses and then stopped for no particular reason. After stopping his antibiotics he continued to smoke meth in order to try and feel better. Today, chills had returned. Pleurisy continued to get worse on the right. He had noted a cough but without sputum production. He feels weak and somewhat rundown. He has otherwise denied headache, sinus congestion, sore throat, sick contacts, recent travel, chest pain other than pleurisy, chest pressure, nausea/vomiting, abdominal discomfort or difficulties with voiding. In the emergency department he was appearing somewhat tired and mildly toxic. Laboratory studies seem to be relatively okay. Auscultative exam of the right chest was notable for significantly decreased breath sounds and rales. Due to laboratory studies indicating a D-dimer close to 1999, a PE study was performed. He was negative for PE but imaging notable for dense right lower lobe pneumonia and small effusion. No loculations were noted. The patient was referred to the internal medicine service for further management. Right Chest Pain Score (Numeric/FACES): 5 - Related Data Allergies/Adverse Reactions: Allergies Allergy/AdvReac Type Severity Reaction Status Date / Time Penicillins Allergy Cannot Verified 11/20/20 13:01 Remember Home Medications: Home Meds . [No Known Home Meds] 04/10/16 [History] Past Medical History - Past Health History Medical/Surgical History: Denies Medical/Surgical History HEENT History: Reports: Impaired Vision Cardiovascular History: Reports: None Respiratory History: Reports: None Gastrointestinal History: Reports: None Genitourinary History: Reports: None Musculoskeletal History: Reports: None Neurological History: Reports: None Psychiatric History: Reports: Addiction (Current use with methamphetamines. Denies any other drug use. Tobacco dependence Minimal alcohol use) Endocrine/Metabolic History: Reports: None Hematologic History: Reports: None Immunologic History: Reports: None Oncologic (Cancer) History: Reports: None Dermatologic History: Reports: None - Infectious Disease History Infectious Disease History: Reports: None - Past Surgical History Head Surgeries/Procedures: Reports: None Social & Family History - Family History Family Medical History: No Pertinent Family History - Tobacco Use Tobacco Use Status *Q: Current Every Day Tobacco User (1 to 5 cigarettes daily.) Tobacco Use Within Last Twelve Months: Cigarettes Years of Tobacco use: 10 Packs/Tins Daily: 0.3 - Caffeine Use Caffeine Use: Reports: Energy Drinks - Alcohol Use Days Per Week of Alcohol Use: 1 Number of Drinks Per Day: 10 Total Drinks Per Week: 10 - Recreational Drug Use Recreational Drug Use: Yes Drug Use in Last 12 Months: Yes Recreational Drug Type: Reports: Methamphetamine H&P Review of Systems - Review of Systems: Review Of Systems: See Below General: Reports: Fever, Chills, Malaise HEENT: Reports: No Symptoms (Yet) Pulmonary: Reports: No Symptoms, Pleuritic Chest Pain (ACR now okay), Cough. Denies: Shortness of Breath, Wheezing, Sputum, Hemoptysis Cardiovascular: Reports: No Symptoms Gastrointestinal: Reports: No Symptoms Genitourinary: Reports: No Symptoms Musculoskeletal: Reports: No Symptoms Skin: Reports: No Symptoms Psychiatric: Reports: No Symptoms Neurological: Reports: No Symptoms Hematologic/Lymphatic: Reports: No Symptoms Exam - Exam Exam: See Below - Vital Signs Vital Signs: Last Vital Signs Temp 97.2 F 11/20/20 09:37 Pulse 84 11/20/20 10:07 Resp 20 11/20/20 09:37 BP 134/69 11/20/20 09:37 Pulse Ox 94 L 11/20/20 09:37 Weight: 197 lb 14.4 oz - Exam Physical Exam Comments:: Examination: General: Awake and alert, no apparent distress, mildly toxic appearing. Provides his own history. HEENT: Normocephalic, atraumatic, extraocular muscles intact, pupils equal and reactive. Nares patent, oropharynx clear without erythema or exudate. Neck: Supple without lymphadenopathy, trachea is midline, no lymphadenopathy. Heart: Regular rate, S1 and S2 heard without murmur or extrasystoles. Lungs: Clear to auscultation within all benitez on the left. Diminished breath sounds in the right base with rales. No wheezing,, rhonchi. Abdomen: Soft, nontender, nondistended. No organomegaly. Extremities: Warm and perfused. No edema. Genitourinary: Deferred. Integument: No obvious rash or jaundice. No wounds. No lymphadenopathy. Psychiatric: Normal mood. - Patient Data Lab Results Last 24 hrs: Laboratory Results - last 24 hr 11/20/20 11/20/20 11/20/20 Range/Units 09:50 09:50 09:50 WBC 8.9 (5.0-10.0) 10^3/uL RBC 4.57 L (4.6-6.2) 10^6/uL Hgb 14.5 D (14.0-18.0) g/dL Hct 42.6 (40.0-54.0) % MCV 93.2 D (80-100) fL MCH 31.7 (27.0-34.0) pg MCHC 34.0 (33.0-35.0) g/dL Plt Count 333 (150-450) 10^3/uL Neut % (Auto) 66.1 (42.2-75.2) % Lymph % (Auto) 16.6 L (20.5-50.1) % [place] % (Auto) 15.0 H (2-8) % Eos % (Auto) 2.0 (1.0-3.0) % Baso % (Auto) 0.3 (0.0-1.0) % Add Manual Diff Yes Neutrophils % (Manual) 58 (42-75) % Lymphocytes % (Manual) 20 (20-50) % Monocytes % (Manual) 19 H (2-8) % Eosinophils % (Manual) 2 (1-3) % Basophils % (Manual) 1 D-Dimer, Quantitative 1750 H (0-400) ng/mL Sodium 137 (136-145) mmol/L Potassium 4.0 (3.5-5.1) mmol/L Chloride 102 (98-107) mmol/L Carbon Dioxide 25 (21-32) mmol/L Anion Gap 14.0 H (7-13) mEq/L BUN 16 (7-18) mg/dL Creatinine 0.98 (0.70-1.30) mg/dL Est Cr Clr Drug Dosing 128.15 mL/min Estimated GFR (MDRD) > 60 BUN/Creatinine Ratio 16.3 (No establ ref range) Glucose 102 H (70-99) mg/dL Lactic Acid (0.4-2.0) mmol/L Calcium 8.4 L (8.5-10.1) mg/dL Total Bilirubin 1.3 H (0.2-1.0) mg/dL AST 15 (15-37) U/L ALT 62 (16-63) U/L Alkaline Phosphatase 96 (46-116) U/L C-Reactive Protein 10.4 H (0.0-0.9) mg/dL Total Protein 7.3 (6.4-8.2) g/dL Albumin 2.9 L (3.4-5.0) g/dL Globulin 4.4 Albumin/Globulin Ratio 0.66 Ethyl Alcohol < 3 (0) mg/dL Influenza Type A RNA (NEGATIVE) Influenza Type B RNA (NEGATIVE) SARS-CoV-2 RNA (HERNANDEZ) (NEGATIVE) 11/20/20 11/20/20 Range/Units 09:50 10:05 WBC (5.0-10.0) 10^3/uL RBC (4.6-6.2) 10^6/uL Hgb (14.0-18.0) g/dL Hct (40.0-54.0) % MCV (80-100) fL MCH (27.0-34.0) pg MCHC (33.0-35.0) g/dL Plt Count (150-450) 10^3/uL Neut % (Auto) (42.2-75.2) % Lymph % (Auto) (20.5-50.1) % [place] % (Auto) (2-8) % Eos % (Auto) (1.0-3.0) % Baso % (Auto) (0.0-1.0) % Add Manual Diff Neutrophils % (Manual) (42-75) % Lymphocytes % (Manual) (20-50) % Monocytes % (Manual) (2-8) % Eosinophils % (Manual) (1-3) % Basophils % (Manual) D-Dimer, Quantitative (0-400) ng/mL Sodium (136-145) mmol/L Potassium (3.5-5.1) mmol/L Chloride (98-107) mmol/L Carbon Dioxide (21-32) mmol/L Anion Gap (7-13) mEq/L BUN (7-18) mg/dL Creatinine (0.70-1.30) mg/dL Est Cr Clr Drug Dosing mL/min Estimated GFR (MDRD) BUN/Creatinine Ratio (No establ ref range) Glucose (70-99) mg/dL Lactic Acid 0.6 (0.4-2.0) mmol/L Calcium (8.5-10.1) mg/dL Total Bilirubin (0.2-1.0) mg/dL AST (15-37) U/L ALT (16-63) U/L Alkaline Phosphatase (46-116) U/L C-Reactive Protein (0.0-0.9) mg/dL Total Protein (6.4-8.2) g/dL Albumin (3.4-5.0) g/dL Globulin Albumin/Globulin Ratio Ethyl Alcohol (0) mg/dL Influenza Type A RNA Negative (NEGATIVE) Influenza Type B RNA Negative (NEGATIVE) SARS-CoV-2 RNA (HERNANDEZ) Negative (NEGATIVE) Result Diagrams: 11/20/20 09:50 11/20/20 09:50 Garo Results Last 24 hrs: Microbiology 11/20/20 10:05 Group A Streptococcus Rapid Screen - Final Throat NEGATIVE STREP A SCREEN REFERENCE RANGE: NEGATIVE Imaging Impressions Last 24 hrs: Chest x-ray and CT of the chest with IV contrast personally reviewed. Agree with official reading. Dense right lower lobe infiltrate. Scattered minor foci noted in out in the periphery in both the right and left lung. Mild right pleural effusion. Problem List Initiated/Reviewed/Updated: Yes Orders Last 24hrs: Active Orders 24 hr Category Date Time Status Admission Diagnosis [ADT] Routine ADT 11/20/20 12:31 Ordered Patient Status [ADT] Routine ADT 11/20/20 12:31 Active Ambulate [RC] PER UNIT ROUTINE Care 11/20/20 12:41 Ordered Oxygen Therapy [RC] PRN Care 11/20/20 12:40 Ordered Peripheral IV Care [RC] . DIRECTED Care 11/20/20 09:37 Active Pulse Oximetry [RC] PRN Care 11/20/20 12:40 Ordered RT Aerosol Therapy [RC] ASDIRECTED Care 11/20/20 09:58 Active Up ad Dayna [RC] ASDIRECTED Care 11/20/20 12:39 Ordered VTE/DVT Education [RC] PER UNIT ROUTINE Care 11/20/20 12:40 Ordered Vital Signs [RC] Q8H Care 11/20/20 12:39 Ordered Regular Diet [DIET] Diet 11/20/20 Dinner Ordered BASIC METABOLIC PANEL,BMP [CHEM] DAILY Lab 11/20/20 12:45 Ordered BASIC METABOLIC PANEL,BMP [CHEM] DAILY Lab 11/21/20 12:45 Ordered BASIC METABOLIC PANEL,BMP [CHEM] DAILY Lab 11/22/20 12:45 Ordered BASIC METABOLIC PANEL,BMP [CHEM] DAILY Lab 11/23/20 12:45 Ordered CBC WITH AUTO DIFF [HEME] DAILY Lab 11/21/20 12:45 Ordered CBC WITH AUTO DIFF [HEME] DAILY Lab 11/22/20 12:45 Ordered CBC WITH AUTO DIFF [HEME] DAILY Lab 11/23/20 12:45 Ordered CULTURE BLOOD [BC] Stat Lab 11/20/20 09:50 Received CULTURE STREP A CONFIRMATION [RM] Stat Lab 11/20/20 10:05 Results STREP SCRN A RAPID W CULT CONF [RM] Stat Lab 11/20/20 10:05 Results UA RFX GARO AND CULT IF INDIC [URIN] Stat Lab 11/20/20 09:36 Ordered Acetaminophen [TylenoL] Med 11/20/20 12:39 Ordered 650 mg PO Q4H PRN Azithromycin [Zithromax] 500 mg Med 11/20/20 13:00 Ordered Sodium Chloride 0.9% [Normal Saline (AdvBag)] 250 ml IV Q24H Dextrose 5%-1/2 Normal Saline @ 125 MLS/HR(1000ml) Med 11/20/20 12:45 Ordered Dextrose 5%-0.45% NaCl [Dextrose 5%-1/2 NS] 1,000 ml IV ASDIRECTED Lidocaine 5% [Lidoderm 5%] Med 11/20/20 13:00 Ordered 700 mg TRDERM Q24H Nicotine [Habitrol] Med 11/20/20 12:45 Ordered 7 mg TRDERM DAILY Ondansetron [Zofran] Med 11/20/20 12:39 Ordered 4 mg IVPUSH Q4H PRN Sodium Chloride 0.9% [Saline Flush] Med 11/20/20 09:37 Active 10 ml FLUSH ASDIRECTED PRN cefTRIAXone [Rocephin] 1 gm Med 11/20/20 13:00 Ordered Sodium Chloride 0.9% [Normal Saline] 50 ml IV Q24H traMADol [Ultram] Med 11/20/20 12:48 Ordered 50 mg PO Q6H PRN Peripheral IV Insertion Adult [OM.PC] Stat Oth 11/20/20 09:36 Ordered Resuscitation Status Routine Resus Stat 11/20/20 12:39 Ordered Medication Orders Acetaminophen (Acetaminophen 325 Mg Tab) 650 mg PO Q4H PRN PRN Reason: Pain (Mild 1-3)/fever Dextrose/Sodium Chloride (Dextrose 5%-1/2 Ns) 1,000 mls @ 125 mls/hr IV ASDIRECTED WISAM Ceftriaxone Sodium 1 gm/ (Sodium Chloride) 50 mls @ 100 mls/hr IV Q24H WISAM Azithromycin 500 mg/ Sodium (Chloride) 250 mls @ 250 mls/hr IV Q24H WISAM Lidocaine (Lidocaine 5% 700 Mg Patch) 700 mg TRDERM Q24H WISAM Nicotine (Nicotine 7 Mg/24 Hr Patch) 7 mg TRDERM DAILY [facility] Ondansetron HCl (Ondansetron 4 Mg/2 Ml Sdv) 4 mg IVPUSH Q4H PRN PRN Reason: Nausea/Vomiting Sodium Chloride (Sodium Chloride 0.9% 10 Ml Syringe) 10 ml FLUSH ASDIRECTED PRN PRN Reason: Keep Vein Open Last Admin: 11/20/20 10:18 Dose: 10 ml Documented by: ISHMAEL Tramadol HCl (Tramadol 50 Mg Tab) 50 mg PO Q6H PRN PRN Reason: Pain (moderate 4-6) Assessment/Plan Comment:: 30-year-old male with a past medical history notable for tobacco use as well as methamphetamine use who presents to the emergency department with a chief complaint of pleurisy. Found to have significant right lower lobe dense pneumonia with pleural effusion. 1. Community-acquired pneumonia without hypoxia. Patient to be admitted to the inpatient service for further monitoring and treatment. Continue empiric antibiotics with Rocephin and azithromycin IV. Monitor oxygenation. Incentive spirometry to be encouraged. Tylenol and tramadol for pleuritic pain. Lidocaine patch as well. 2. Tobacco dependence. Nicotine patch. Tobacco cessation education. 3. Methamphetamine use. We will have case management and social work see him in regards to giving him resources to help him with his addiction. CODE STATUS: Full code. DVT prophylaxis: Patient may ambulate.
[2020-11-20] MEDS: Nicotine 7 MG/24 Hr Patch TRDERM SCH (13:28)
[2020-11-20] MEDS: Lidocaine 5% 700 MG Patch TRDERM SCH (13:28)
[2020-11-20] MEDS: Dextrose 5%-0.45% NaCl 1,000 ML IV SCH ×2 (13:30→22:50)
[2020-11-21 06:13] LABS: ANION GAP 13.1 mEq/L (7-13); CHLORIDE,CL 104 mmol/L (98-107); SODIUM,NA 139 mmol/L (136-145)
[2020-11-21] MEDS: Dextrose 5%-0.45% NaCl 1,000 ML IV SCH (06:31)
--- NOTE | 2020-11-21 07:57 | PCM.DCSUM1 ---
Discharge Summary - Hospital Course Free Text/Narrative:: Acute right lower lobe community-acquired pneumonia with small pleural effusion. Patient was admitted to the inpatient internal medicine service for further monitoring and IV antibiotics. Upon intake the patient was not septic by definition. He was afebrile. He was not hypoxic. The patient was more complaining of pleurisy associated with his pneumonia and effusion. The patient was admitted and placed on empiric IV Rocephin and azithromycin. Patient stated an allergic reaction to prior penicillin administration but did not have any noticeable intolerance to cephalosporin. Patient was monitored overnight. There were no recorded fevers. He was not requiring supplemental oxygen. For his pleurisy the patient was provided tramadol as well as a lidocaine patch which relieved his symptoms greatly to a pain scale less than 2. The patient wished to go home the next morning. As he was stable without constitutional symptoms and hypoxia his antibiotics were converted to p.o. Levaquin 750 mg daily. Patient was given specific instructions to continue antibiotics for full course without discontinuing. He was also encouraged to stop smoking as well as stop using methamphetamines. Instructed to follow-up with a care provider within the next month. Recommend repeat chest imaging within 4 weeks. HPI Initial Comments: Chief complaint: Pleurisy Patient is a 30-year-old male with a past medical history really only notable for prior drug use who presents to the [facility] emergency department due to chief complaint of pleurisy on the right. Patient states that he was in his usual state of health up until this past when he woke up with shaking chills and noted that he had a fever. He was cold and clammy all day. He felt a little malaise. He did not feel like eating or drinking. As he knew something was not right he presented to a local clinic to be seen. He was evaluated and diagnosed with an acute right lower lobe community-acquired pneumonia for which she was prescribed an antibiotic and discharged. The patient had normal labs according to his report and he was never requiring supplemental oxygen. He does not remember which antibiotic they gave him, he states that he only took a couple doses and then stopped for no particular reason. After stopping his antibiotics he continued to smoke meth in order to try and feel better. Today, chills had returned. Pleurisy continued to get worse on the right. He had noted a cough but without sputum production. He feels weak and somewhat rundown. He has otherwise denied headache, sinus congestion, sore throat, sick contacts, recent travel, chest pain other than pleurisy, chest pressure, nausea/vomiting, abdominal discomfort or difficulties with voiding. In the emergency department he was appearing somewhat tired and mildly toxic. Laboratory studies seem to be relatively okay. Auscultative exam of the right chest was notable for significantly decreased breath sounds and rales. Due to laboratory studies indicating a D-dimer close to 1999, a PE study was performed. He was negative for PE but imaging notable for dense right lower lobe pneumonia and small effusion. No loculations were noted. The patient was referred to the internal medicine service for further management. Examination: General: Awake and alert, no apparent distress, mildly toxic appearing. Provides his own history. HEENT: Normocephalic, atraumatic, extraocular muscles intact, pupils equal and reactive. Nares patent, oropharynx clear without erythema or exudate. Neck: Supple without lymphadenopathy, trachea is midline, no lymphadenopathy. Heart: Regular rate, S1 and S2 heard without murmur or extrasystoles. Lungs: Clear to auscultation within all benitez on the left. Diminished breath sounds in the right base with rales. No wheezing,, rhonchi. Abdomen: Soft, nontender, nondistended. No organomegaly. Extremities: Warm and perfused. No edema. Genitourinary: Deferred. Integument: No obvious rash or jaundice. No wounds. No lymphadenopathy. Psychiatric: Normal mood. Brief History: P - Discharge Data Discharge Date: 11/21/20 Discharge Disposition: Home, Self-Care 01 Condition: Good - Referral to Home Health Primary Care Physician: PCP Unobtainable - Discharge Diagnosis/Problem(s) (1) Pneumonia SNOMED Code(s): 536247394 ICD Code: J18.9 - PNEUMONIA, UNSPECIFIED ORGANISM Status: Acute Current Visit: No Qualifiers: Pneumonia type: due to unspecified organism Laterality: right Lung location: lower lobe of lung Qualified Code(s): J18.9 - Pneumonia, unspecified organism - Patient Instructions Diet: Usual Diet as Tolerated Activity: As Tolerated Notify Provider of: Fever, Increased Pain Other/Special Instructions: Activity and diet are as tolerated. Continue taking medications as prescribed. Refrain from recreational drug use. If you experience any signs or symptoms that warranted this admission please do not hesitate to call your primary care physician or present to emergency department/urgent care setting for any immediate evaluation. - Discharge Plan *PRESCRIPTION DRUG MONITORING PROGRAM REVIEWED*: Not Applicable *COPY OF PRESCRIPTION DRUG MONITORING REPORT IN PATIENT KUN: Not Applicable Prescriptions/Med Rec: levoFLOXacin [Levaquin] 750 mg PO DAILY #10 tab Lidocaine 5% [Lidoderm 5%] 700 mg TRDERM DAILY #5 patch traMADol [Ultram] 50 mg PO Q6H PRN #20 tablet PRN Reason: Pain (Moderate 4-6) Home Medications: Home Meds Lidocaine 5% [Lidoderm 5%] 700 mg TRDERM DAILY #5 patch 11/21/20 [Rx] levoFLOXacin [Levaquin] 750 mg PO DAILY #10 tab 11/21/20 [Rx] traMADol [Ultram] 50 mg PO Q6H PRN #20 tablet 11/21/20 [Rx] Patient Handouts: Tramadol tablets, Pleural Effusion, Levofloxacin tablets, Lidocaine dermal patch Referrals: Metaferia,Tre, [employer] [Ordering Only Provider] - - Discharge Summary/Plan Comment DC Time >30 min.: No - General Info Date of Service: 11/21/20 Admission Dx/Problem (Free Text: Admission Diagnosis/Problem Admission Diagnosis/Problem right lower lobe community-acquired pneumonia, pleurisy Functional Status: Reports: Pain Controlled - Review of Systems General: Denies: Fever HEENT: Reports: No Symptoms Pulmonary: Denies: Pleuritic Chest Pain (Mild) Cardiovascular: Reports: No Symptoms Gastrointestinal: Reports: No Symptoms Genitourinary: Reports: No Symptoms Musculoskeletal: Reports: No Symptoms Skin: Reports: No Symptoms Neurological: Reports: No Symptoms - Patient Data Vitals - Most Recent: Last Vital Signs Temp 98.8 F 11/21/20 04:00 Pulse 68 11/21/20 04:00 Resp 17 11/21/20 04:00 BP 114/54 L 11/21/20 04:00 Pulse Ox 98 11/21/20 04:00 Weight - Most Recent: 192 lb 3.2 oz I&O - Last 24 hours: Intake & Output 11/20/20 11/21/20 11/21/20 22:59 06:59 14:59 Intake Total 120 1200 Balance 120 1200 Lab Results - Last 24 hrs: Laboratory Results - last 24 hr 11/20/20 11/20/20 11/20/20 Range/Units 09:50 09:50 09:50 WBC 8.9 (5.0-10.0) 10^3/uL RBC 4.57 L (4.6-6.2) 10^6/uL Hgb 14.5 D (14.0-18.0) g/dL Hct 42.6 (40.0-54.0) % MCV 93.2 D (80-100) fL MCH 31.7 (27.0-34.0) pg MCHC 34.0 (33.0-35.0) g/dL Plt Count 333 (150-450) 10^3/uL Neut % (Auto) 66.1 (42.2-75.2) % Lymph % (Auto) 16.6 L (20.5-50.1) % Hinds % (Auto) 15.0 H (2-8) % Eos % (Auto) 2.0 (1.0-3.0) % Baso % (Auto) 0.3 (0.0-1.0) % Add Manual Diff Yes Neutrophils % (Manual) 58 (42-75) % Lymphocytes % (Manual) 20 (20-50) % Monocytes % (Manual) 19 H (2-8) % Eosinophils % (Manual) 2 (1-3) % Basophils % (Manual) 1 D-Dimer, Quantitative 1750 H (0-400) ng/mL Sodium 137 (136-145) mmol/L Potassium 4.0 (3.5-5.1) mmol/L Chloride 102 (98-107) mmol/L Carbon Dioxide 25 (21-32) mmol/L Anion Gap 14.0 H (7-13) mEq/L BUN 16 (7-18) mg/dL Creatinine 0.98 (0.70-1.30) mg/dL Est Cr Clr Drug Dosing 128.15 mL/min Estimated GFR (MDRD) > 60 BUN/Creatinine Ratio 16.3 (No establ ref range) Glucose 102 H (70-99) mg/dL Lactic Acid (0.4-2.0) mmol/L Calcium 8.4 L (8.5-10.1) mg/dL Total Bilirubin 1.3 H (0.2-1.0) mg/dL AST 15 (15-37) U/L ALT 62 (16-63) U/L Alkaline Phosphatase 96 (46-116) U/L C-Reactive Protein 10.4 H (0.0-0.9) mg/dL Total Protein 7.3 (6.4-8.2) g/dL Albumin 2.9 L (3.4-5.0) g/dL Globulin 4.4 Albumin/Globulin Ratio 0.66 Ethyl Alcohol < 3 (0) mg/dL Influenza Type A RNA (NEGATIVE) Influenza Type B RNA (NEGATIVE) SARS-CoV-2 RNA (HERNANDEZ) (NEGATIVE) 11/20/20 11/20/20 11/21/20 Range/Units 09:50 10:05 05:30 WBC 10.3 H (5.0-10.0) 10^3/uL RBC 4.20 L (4.6-6.2) 10^6/uL Hgb 13.3 L (14.0-18.0) g/dL Hct 39.9 L (40.0-54.0) % MCV 95.0 (80-100) fL MCH 31.7 (27.0-34.0) pg MCHC 33.3 (33.0-35.0) g/dL Plt Count 338 (150-450) 10^3/uL Neut % (Auto) 74.5 (42.2-75.2) % Lymph % (Auto) 15.9 L (20.5-50.1) % Hinds % (Auto) 9.0 H (2-8) % Eos % (Auto) 0.4 L (1.0-3.0) % Baso % (Auto) 0.2 (0.0-1.0) % Add Manual Diff Neutrophils % (Manual) (42-75) % Lymphocytes % (Manual) (20-50) % Monocytes % (Manual) (2-8) % Eosinophils % (Manual) (1-3) % Basophils % (Manual) D-Dimer, Quantitative (0-400) ng/mL Sodium (136-145) mmol/L Potassium (3.5-5.1) mmol/L Chloride (98-107) mmol/L Carbon Dioxide (21-32) mmol/L Anion Gap (7-13) mEq/L BUN (7-18) mg/dL Creatinine (0.70-1.30) mg/dL Est Cr Clr Drug Dosing mL/min Estimated GFR (MDRD) BUN/Creatinine Ratio (No establ ref range) Glucose (70-99) mg/dL Lactic Acid 0.6 (0.4-2.0) mmol/L Calcium (8.5-10.1) mg/dL Total Bilirubin (0.2-1.0) mg/dL AST (15-37) U/L ALT (16-63) U/L Alkaline Phosphatase (46-116) U/L C-Reactive Protein (0.0-0.9) mg/dL Total Protein (6.4-8.2) g/dL Albumin (3.4-5.0) g/dL Globulin Albumin/Globulin Ratio Ethyl Alcohol (0) mg/dL Influenza Type A RNA Negative (NEGATIVE) Influenza Type B RNA Negative (NEGATIVE) SARS-CoV-2 RNA (HERNANDEZ) Negative (NEGATIVE) 11/21/20 Range/Units 05:30 WBC (5.0-10.0) 10^3/uL RBC (4.6-6.2) 10^6/uL Hgb (14.0-18.0) g/dL Hct (40.0-54.0) % MCV (80-100) fL MCH (27.0-34.0) pg MCHC (33.0-35.0) g/dL Plt Count (150-450) 10^3/uL Neut % (Auto) (42.2-75.2) % Lymph % (Auto) (20.5-50.1) % Hinds % (Auto) (2-8) % Eos % (Auto) (1.0-3.0) % Baso % (Auto) (0.0-1.0) % Add Manual Diff Neutrophils % (Manual) (42-75) % Lymphocytes % (Manual) (20-50) % Monocytes % (Manual) (2-8) % Eosinophils % (Manual) (1-3) % Basophils % (Manual) D-Dimer, Quantitative (0-400) ng/mL Sodium 139 (136-145) mmol/L Potassium 4.1 (3.5-5.1) mmol/L Chloride 104 (98-107) mmol/L Carbon Dioxide 26 (21-32) mmol/L Anion Gap 13.1 H (7-13) mEq/L BUN 12 (7-18) mg/dL Creatinine 0.80 (0.70-1.30) mg/dL Est Cr Clr Drug Dosing 156.98 mL/min Estimated GFR (MDRD) > 60 BUN/Creatinine Ratio (No establ ref range) Glucose 127 H (70-99) mg/dL Lactic Acid (0.4-2.0) mmol/L Calcium 8.3 L (8.5-10.1) mg/dL Total Bilirubin (0.2-1.0) mg/dL AST (15-37) U/L ALT (16-63) U/L Alkaline Phosphatase (46-116) U/L C-Reactive Protein (0.0-0.9) mg/dL Total Protein (6.4-8.2) g/dL Albumin (3.4-5.0) g/dL Globulin Albumin/Globulin Ratio Ethyl Alcohol (0) mg/dL Influenza Type A RNA (NEGATIVE) Influenza Type B RNA (NEGATIVE) SARS-CoV-2 RNA (HERNANDEZ) (NEGATIVE) SOU[facility]E Results - Last 24 hrs: Microbiology 11/20/20 10:05 Quick Strep Confirmation Culture - Final Throat NO GROUP A STREP ISOLATED REFERENCE RANGE: NEGATIVE Group A Streptococcus Rapid Screen - Final NEGATIVE STREP A SCREEN REFERENCE RANGE: NEGATIVE Med Orders - Current: Current Medications Acetaminophen (Acetaminophen 325 Mg Tab) 650 mg PO Q4H PRN PRN Reason: Pain (Mild 1-3)/fever Dextrose/Sodium Chloride (Dextrose 5%-1/2 Ns) 1,000 mls @ 125 mls/hr IV ASDIRECTED [facility] Last Admin: 11/21/20 06:31 Dose: 125 mls/hr Documented by: Ceftriaxone Sodium 1 gm/ (Sodium Chloride) 50 mls @ 100 mls/hr IV Q24H [facility] Azithromycin 500 mg/ Sodium (Chloride) 250 mls @ 250 mls/hr IV Q24H [facility] Lidocaine (Lidocaine 5% 700 Mg Patch) 700 mg TRDERM DAILY [facility] Last Admin: 11/20/20 13:28 Dose: 700 mg Documented by: Miscellaneous Information (Remove Patch) 1 ea TRDERM DAILY [facility] Miscellaneous Information (Remove Patch) 1 ea TRDERM BEDTIME [facility] Last Admin: 11/20/20 21:20 Dose: 1 ea Documented by: Nicotine (Nicotine 7 Mg/24 Hr Patch) 7 mg TRDERM DAILY [facility] Last Admin: 11/20/20 13:28 Dose: Not Given Documented by: Ondansetron HCl (Ondansetron 4 Mg/2 Ml Sdv) 4 mg IVPUSH Q4H PRN PRN Reason: Nausea/Vomiting Sodium Chloride (Sodium Chloride 0.9% 10 Ml Syringe) 10 ml FLUSH ASDIRECTED PRN PRN Reason: Keep Vein Open Last Admin: 11/20/20 10:18 Dose: 10 ml Documented by: Tramadol HCl (Tramadol 50 Mg Tab) 50 mg PO Q6H PRN PRN Reason: Pain (moderate 4-6) Last Admin: 11/20/20 13:29 Dose: 50 mg Documented by: Discontinued Medications Albuterol/Ipratropium (Albuterol/Ipratropium 3.0-0.5 Mg/3 Ml Neb Soln) 3 ml NEB ONETIME ONE Stop: 11/20/20 09:59 Last Admin: 11/20/20 10:07 Dose: 3 ml Documented by: Dexamethasone (Dexamethasone 4 Mg/Ml Sdv) 8 mg IVPUSH ONETIME ONE Stop: 11/20/20 10:00 Last Admin: 11/20/20 10:17 Dose: 8 mg Documented by: Ceftriaxone Sodium 2 gm/ (Sodium Chloride) 100 mls @ 200 mls/hr IV ONETIME ONE Stop: 11/20/20 10:27 Last Admin: 11/20/20 10:20 Dose: 200 mls/hr Documented by: Azithromycin 500 mg/ Sodium (Chloride) 250 mls @ 250 mls/hr IV ONETIME ONE Stop: 11/20/20 10:58 Last Admin: 11/20/20 10:23 Dose: 250 mls/hr Documented by: Iopamidol (Iopamidol 755 Mg/Ml 100 Ml Bottle) 100 ml IVPUSH ONETIME ONE Stop: 11/20/20 11:02 Last Admin: 11/20/20 11:46 Dose: 75 ml Documented by: - Exam General: Reports: Alert Neck: Reports: Supple Lungs: Reports: Decreased Breath Sounds, Rales (Right base) Cardiovascular: Reports: Regular Rate, Regular Rhythm GI/Abdominal Exam: Normal Bowel Sounds, Soft, Non-Tender Extremities: Normal Inspection, Normal Range of Motion, No Pedal Edema Skin: Reports: Warm, Dry Neurological: Reports: No New Focal Deficit Psy/Mental Status: Reports: Alert, Normal Affect
[2020-11-21] MEDS: Nicotine 7 MG/24 Hr Patch TRDERM SCH (09:11)
[2020-11-21] MEDS: Lidocaine 5% 700 MG Patch TRDERM SCH (09:11)
[2020-11-21] MEDS ORDERED: cefTRIAXone 1 GM in Sodium Chloride 0.9% 50 ML IV SCH (09:30)
[2020-11-21] MEDS ORDERED: Azithromycin 500 MG in Sodium Chloride 0.9% 250 ML IV SCH (10:00)
== END 2020-11-21 13:10 | disposition home or self-care (01) | DRG 194 ==
LOC: DL.ED 09:24 → DL.MS 12:31
PROVIDERS: ADMIT Hospitalist; ATTEND Hospitalist
DX: J18.9 Pneumonia, unspecified organism (principal); J90 Pleural effusion, not elsewhere classified; Z88.0 Allergy status to penicillin; H54.7 Unspecified visual loss; F17.210 Nicotine dependence, cigarettes, uncomplicated; Z20.822 Contact with and (suspected) exposure to COVID-19; Z28.82 Immunization not carried out because of caregiver refusal
CPT/HCPCS: 0240U; 36415; 71046; 71260; 80048; 80053; 80307; 83605; 85025; 85379; 86140; 87040; 87081; 87430; 94640; 99284; 96365; 96367; 96375; 99285-25; A9270-GY; J0456; J0696; J1100; J7042; J7050; J7620-GY; Q9967

== ENCOUNTER 2024-03-21 15:23 | Emergency (ER) | payer MEDICAID, OTHER ==
[2024-03-21] MEDS: Take Home: Sulfamethoxazole/Trimethoprim 800-160 MG Tab, 6 Tab Pack PO ONE (15:44)
== END 2024-03-21 15:58 | disposition home or self-care (01) ==
LOC: DL.ED 15:23
DX: L03.115 Cellulitis of right lower limb (principal); Z79.899 Other long term (current) drug therapy; Z88.0 Allergy status to penicillin
CPT/HCPCS: 99283; A9270

== ENCOUNTER 2024-04-19 21:09 | Emergency (ER) | payer OTHER, MEDICAID ==
[2024-04-19] MEDS ORDERED: Sodium Chloride 0.9% 10 ML Syringe FLUSH PRN (21:20)
[2024-04-19] MEDS: Acetaminophen 500 MG Tab PO ONE (22:33)
[2024-04-19] MEDS: Ketorolac 30 MG/ML SDV IVPUSH ONE (23:04)
== END 2024-04-19 23:13 | disposition home or self-care (01) ==
LOC: DL.ED 21:09
DX: S23.29XA Dislocation of other parts of thorax, initial encounter (principal); V19.9XXA Pedal cyclist (driver) (passenger) injured in unspecified traffic accident, initial encounter; Z79.899 Other long term (current) drug therapy; Z88.0 Allergy status to penicillin
CPT/HCPCS: 36415; 70450; 71046; 72125; 73030-RT; 80307; 96374; 99284; 99284-25; A9270-GY; J1885